=== PATIENT | female | born 1955 | race Caucasian/White ===

== ENCOUNTER 2024-10-03 13:11 | Emergency (ER) | payer OTHER, SELFPAY ==
[2024-10-03 13:13] VITALS: BP 131/74
[2024-10-03 15:01] LABS: % Basophils 1.3 % (0-2); % Eosinophils 4.7 % (0-6); % Lymphocytes 35.6 % (20.5-51.1); % Monocytes 11.3 % (1.7-9.3); % Neutrophils 47.1 % (42.2-75.2); Absolute Basophils 0.1 10^3/uL (0-0.2); Absolute Eosinophils 0.3 10^3/uL (0-0.7); Absolute Monocytes 0.6 10^3/uL (0.1-0.6); Absolute Neutrophils 2.6 10^3/uL (1.4-6.5); Hemoglobin 13.2 g/dL (12.0-16.0); Mean Corp Hgb Conc. 33.8 g/dL (33.0-37.0); Mean Corpuscular Hgb 32.2 pg (27.0-31.0); Mean Corpuscular Volume 95.1 fL (81.0-99.0); Mean Platelet Volume 9.5 fL (7.4-10.4); Nucleated Red Blood Cells % 0 %; Platelet Count 309 10^3/uL (130-400); Red Cell Dist. Width 12.9 % (11.5-14.5); White Blood Cell Count 5.6 10^3/uL (4.8-10.8)
--- NOTE | 2024-10-03 15:02 | ED.GENMED ---
History of Present Illness
General
Chief Complaint: Dizziness
Source: patient
Exam Limitations: none
Time Seen by Provider: 10/03/24 14:05
Nursing documentation reviewed up to this point in time: agreed with
History of Present Illness
History of Present Illness:
69-year-old female with history as noted presents to the ER for evaluation of dizziness. Patient reports that she has had intermittent dizziness for years but over the past 2 weeks symptoms have been consistent. She says intensity will wax and
wane. She describes a room spinning sensation associated with feeling of being off balance. She says that it seems to be worse when she walks around to the point that she will sometimes have to hold onto nearby objects to stay upright. She denies
associated nausea or vomiting. She says that she tried doing the Sami maneuver at home which has worked in the past and was unsuccessful; she then went to see a physical therapist and had the Sami maneuver done a few days ago but this also did
not help. She says that she noticed some discomfort in the left ear/neck and discussed with a friend who is a nurse who recommended she come to have her 'carotids evaluated.' She denies any headache. She denies any change in vision or speech,
focal weakness or numbness or any other complaints.
Review of Systems
Review of Systems
All Other Systems: ROS reviewed and negative except as documented in HPI and ROS
Constitutional: Denies fever
EENT: Reports other (Left ear/neck pain)
Respiratory: Denies trouble breathing
Cardiac: Denies chest pain
ABD/GI: Denies nausea or vomiting
Musculoskeletal: Denies neck pain or back pain
Neurological: Reports dizzy; Denies headache, weakness or numbness
Phy Exam
Physical Exam
Physical Exam:
General: Awake, alert; no acute distress
Head: Normocephalic, atraumatic
Eyes: Conjunctiva normal, EOMI without nystagmus, pupils equal round and reactive to light bilaterally
Ears: TM somewhat dull left compared to right with minimal to no light reflex, no bulging, no erythema, no drainage in the canal
Throat: Airway intact, handling secretions
Neck: Trachea midline, supple without meningismus, no swelling, no tenderness of the mastoid process
Lungs: Clear to auscultation bilaterally, no wheezing, rales, rhonchi
Heart: Regular rate and rhythm, no murmurs, gallops, or rubs
Neuro: Cranial nerves intact, speech fluid no dysarthria or aphasia, no limb ataxia, motor and sensory intact in all extremities
Extremities: Warm and well-perfused
Scores
Heart Failure Risk
Heart Failure Risk Score: Not Applicable
Heart Score for Chest Pain Patients
STEMI patient?: Not applicable
Withdrawal Assessment of Alcohol
Withdrawal Assessment Completed?: Not applicable
Course
Orders/Labs/Results
Orders:
Orders
10/03/24 13:20
Electrocardiogram (*1) Urgent
Reason for Study: Vertigo / Dizzy
10/03/24 13:21
EKG- Treatment ONCE
10/03/24 14:42
CT Head & Neck Angio W/wo IV Urgent
Comment:
Reason For Exam: dizziness, left neck pain
10/03/24 14:49
Complete Blood Count/With Diff Urgent
Comprehensive Metabolic Panel Urgent
Abnormal Lab Results
10/03/24
14:49
RBC 4.10 L 10^6/uL
(4.20-5.40)
MCH 32.2 H pg
(27.0-31.0)
Monocytes % 11.3 H %
(1.7-9.3)
10/03/24 14:49
Vital Signs
Initial and Last Documented VS:
Initial Vital Signs
Temp Pulse Resp BP Pulse Ox
36.4 C 75 18 131/74 98
10/03/24 13:13 10/03/24 13:13 10/03/24 13:13 10/03/24 13:13 10/03/24 13:13
Last Documented Vital Signs
Temp Pulse Resp BP Pulse Ox
36.4 C 75 18 131/74 98
10/03/24 13:13 10/03/24 13:13 10/03/24 13:13 10/03/24 13:13 10/03/24 13:13
MDM/Problems Addressed
Differential Diagnosis Includes:
History sounds more consistent with peripheral vertigo with paroxysmal symptoms worsened by movement; differential would include labyrinthitis, eustachian tube dysfunction, BPPV, etc.; central vertigo also consideration although less likely based on
history�this would include stroke or dissection
MDM/Problems Addressed:
69-year-old female presents for evaluation of dizziness as described above. Vitals and exam as above. Currently resting comfortably minimal to no symptoms but she reports symptoms waxing and waning over the past 2 weeks. Vitals normal. Physical
exam as above. She was very concerned about her carotids as she did have some discomfort behind the left ear. I think this is more likely eustachian tube dysfunction causing left-sided ear/neck discomfort and dizziness as she had some dullness of
the left TM compared to the right and no objective findings otherwise in the neck or ear. Will plan to check CTA head and neck to rule out any dissection or other acute process. Reassess after the above.
*Radiology
Radiology exam reviewed: radiology read reviewed
*Pulse Oximetry
Patient hypoxic: no
*Critical Care Note
Total Time (30-74mins, 75-104mins- exclusive of procedures): Not Applicable
Data Reviewed
Source: patient
ED Attending Note
-
Portions of this chart may have been created with voice recognition software.� Occasional wrong word or��sound alike� substitutions may have occurred due to the inherent limitations of voice recognition software.
Discharge Plan
Departure
Discharge Problem:
Vertigo
Instructions: Vertigo (a type of dizziness)
Prescriptions:
New
meclizine 25 mg tablet
25 mg PO BID PRN (Reason: dizziness) Qty: 20 0RF
Referrals:
Ike Medrano MD [Family Provider] -
Walter Nolasco MD [Active] - Call in 1-3 days for appt (ENT)
Activity Restrictions/Additional Instructions:
Thank you for visiting the Emergency Department at [facility].
1. Please schedule a follow up appointment as directed. Call first thing tomorrow morning to make an appointment.
2. If indicated, please take your medications as instructed and indicated on discharge paperwork.
3. If any of your symptoms do not improve, or persist, or become more severe within 6-12 hours, please return to the emergency department for further care.
4. Please return to the emergency department if you develop a headache, neck pain/stiffness, fever greater than 100.4F, chest pain, shortness of breath, persistent nausea, vomiting, slurred speech, difficulty walking, numbness/tingling, weakness,
signs of infection or any other symptoms that are worrisome to you.
Please call [phone] if you have any questions.
Interventions
Interventions:
*Risk Screen - Suicide Last Done: 10/03/24 13:13
*General Assessment Last Done: 10/03/24 13:13
*Neglect/Abuse Screening Last Done: 10/03/24 13:13
Discharge Date and Time
Print Language: CITIZEN [place]
[2024-10-03 15:15] LABS: ALT (SGPT) 17 U/L (0-35); AST (SGOT) 22 U/L (14-36); Albumin 4.1 g/dl (3.5-5.0); Alkaline Phosphatase 47 U/L (38-126); Blood Urea Nitrogen 14 mg/dl (7-17); Calcium 9.6 mg/dl (8.4-10.2); Carbon Dioxide 27 mmol/L (22-30); Chloride 107 mmol/L (98-107); Glucose 98 mg/dl (70-99); Potassium 4.4 mmol/L (3.5-5.1); Sodium 140 mmol/L (135-145); Total Bilirubin 0.6 mg/dl (0.2-1.3); Total Protein 7.1 g/dl (6.3-8.2); eGFR > 60.00
== END 2024-10-03 17:53 | disposition home or self-care (01) ==
LOC: EMR 13:11
PROVIDERS: EMERGENCY PHYSICIAN Emergency Medicine; FAMILY PHYSICIAN Family Medicine
DX: R42 Dizziness and giddiness (principal)
CPT/HCPCS: 99284; 70496; 70498; 80053; 85025; 93005; Q9967